=== PATIENT | male | born 1960 | race African-American/Black ===

== ENCOUNTER 2017-07-02 08:22 | Inpatient (IN) | payer OTHER ==
[2017-07-02 10:45] VITALS: BMI 31.3
--- NOTE | 2017-07-02 12:39 | HP ---
CIWA Score - CIWA Score Nausea/Vomitin-Int. Nausea w/Dry Heave Muscle Tremors: 4-Moderate,w/Arms Extend Anxiety: 4-Mod. Anxious/Guarded Agitation: 4-Moderately Restless Paroxysmal Sweats: No Perspiration Orientation: 0-Oriented Tacttile Disturbances: 3-Moderate Itch/Numb/Burn Auditory Disturbances: 0-None Visual Disturbances: 0-None Headache: 0-None Present CIWA-Ar Total Score: 19 Admission ROS BHS - HPI Chief Complaint: WITHDRAWAL SX FROM ALCOHOL Allergies/Adverse Reactions: Allergies Allergy/AdvReac Type Severity Reaction Status Date / Time No Known Allergies Allergy Verified 07/02/17 11:08 History of Present Illness: 56 Y/O AA/MALE WITH A HX OF ALCOHOL DEPENDENCE SEEKING DETOX [place] Exam Limitations: No Limitations - Ebola screening Have you traveled outside of the country in the last 21 days: No Have you had contact with anyone from an Ebola affected area: No Have you been sick,other than usual withdrawal symptoms: No - Review of Systems Constitutional: Chills, Night Sweats, Changes in sleep Respiratory: reports: No Symptoms reported Cardiac: reports: Lightheadedness GI: reports: Nausea, Vomiting : reports: No Symptoms Reported Musculoskeletal: reports: No Symptoms Reported Integumentary: reports: No Symptoms Reported Neuro: reports: Headache, Tremors, Unsteady Gait, Dizziness Endocrine: reports: No Symptoms Reported Hematology: reports: No Symptoms Reported Psychiatric: reports: Orientated x3, Anxious, Depressed Other Systems: Reviewed and Negative Patient History - Patient Medical History Hx Anemia: No Hx Asthma: No Hx Chronic Obstructive Pulmonary Disease (COPD): No Hx Cancer: No Hx Cardiac Disorders: No Hx Congestive Heart Failure: No Hx Hypertension: No Hx Hypercholesterolemia: No Hx Pacemaker: No HX Cerebrovascular Accident: No Hx Seizures: No Hx Dementia: No Hx Diabetes: No Hx Gastrointestinal Disorders: No Hx Liver Disease: No Hx Genitourinary Disorders: No Hx Sexually Transmitted Disorders: No Hx Renal Disease (ESRD): No Hx Thyroid Disease: Yes (HX HYPERTHYROIDISM- NO MED) Hx Human Immunodeficiency Virus (HIV): No (NEGATIVE HX) Hx Hepatitis C: Yes (1 year) Hx Depression: Yes (INSOMNIA-SEROQUEL,TRAZODONE & VISTARIL) Hx Suicide Attempt: No (DENIES PREVIOUS AND CURRENT S/H/I TODAY) Hx Bipolar Disorder: No Hx Schizophrenia: No (DENIES) - Patient Surgical History Past Surgical History: Yes Hx Neurologic Surgery: No Hx Cataract Extraction: No Hx Cardiac Surgery: No Hx Lung Surgery: No Hx Breast Surgery: No Hx Breast Biopsy: No Hx Abdominal Surgery: No Hx Appendectomy: No Hx Cholecystectomy: No Hx Genitourinary Surgery: No Hx Orthopedic Surgery: Yes (RT.HAND 4TH FINGER) Anesthesia Reaction: No - PPD History Previous Implant?: Yes Documented Results: Negative w/proof Implanted On Prior [facility] Admission?: Yes Date: 03/15/16 Results: 0 mm PPD to be Administered?: Yes - Reproductive History Patient is a Female of Child Bearing Age (11 -55 yrs old): No (MALE) - Smoking Cessation Smoking history: Current every day smoker Have you smoked in the past 12 months: Yes Aproximately how many cigarettes per day: 5 Cigars Per Day: 0 Hx Chewing Tobacco Use: No Initiated information on smoking cessation: Yes 'Breaking Loose' booklet given: 07/02/17 - Substance & Tx. History Hx Alcohol Use: Yes (RUM/BEER) Hx Substance Use: Yes (COCAINE/MARIJUANA) Substance Use Type: Alcohol, Cocaine, Marijuana Hx Substance Use Treatment: Yes - Substances Abused Alcohol Route: Oral Frequency: Daily Amount used: rum(2 pints)/beer(5-16oz cans) Age of first use: 15 Date of Last Use: 07/01/17 Cocaine Route: Smoking Frequency: Daily Amount used: $50 Age of first use: 23 Date of Last Use: 07/01/17 Marijuana/Hashish Route: Smoking Frequency: Daily Amount used: $20 Age of first use: 15 Date of Last Use: 07/01/17 Family Disease History - Family Disease History Family Disease History: Other: Father (alcohol), Mother (alcohol), Brother ( alcohol), Sister (alcohol) Admission Physical Exam BHS - Vital Signs Vital Signs: Vital Signs - 24 hr 07/02/17 10:43 Temperature 96.8 F L Pulse Rate 104 H Respiratory 20 Rate Blood Pressure 150/73 - Physical General Appearance: Yes: Moderate Distress, Alcohol on Breath, Intoxicated, Anxious HEENTM: Yes: EOMI, Normocephalic, BRADEN, Pharynx Normal Respiratory: Yes: Chest Non-Tender, Lungs Clear, Normal Breath Sounds, No Respiratory Distress Neck: Yes: No masses,lesions,Nodules, Supple, Trachea in good position Breast: Yes: Breast Exam Deferred Cardiology: Yes: Regular Rhythm, Regular Rate, S1, S2 Abdominal: Yes: Normal Bowel Sounds, Non Tender, Flat, Soft Genitourinary: Yes: Other (N/C) Back: Yes: Within Normal Limits Musculoskeletal: Yes: full range of Motion, Gait Steady Extremities: Yes: Normal Range of Motion, Non-Tender Neurological: Yes: complaints coordinator II-XII NML intact, Fully Oriented, Alert, Motor Strength 5/5 Integumentary: Yes: Dry, Warm Lymphatic: Yes: Within Normal Limits - Diagnostic (1) Hepatitis C carrier Current Visit: Yes Status: Chronic (2) Hyperthyroidism Current Visit: Yes Status: Chronic Comment: PT HX-NO MEDS (3) Nicotine dependence Current Visit: Yes Status: Acute Qualifiers: Nicotine product type: cigarettes Substance use status: in withdrawal Qualified Code(s): F17.213 - Nicotine dependence, cigarettes, with withdrawal (4) Alcohol dependence with uncomplicated withdrawal Current Visit: Yes Status: Acute (5) Cocaine dependence with withdrawal Current Visit: Yes Status: Acute (6) Insomnia secondary to depression with anxiety Current Visit: Yes Status: Chronic Cleared for Admission [facility] - Detox or Rehab [facility] Level of Care: Medically Managed Detox Regimen/Protocol: Librium [facility] Breath Alcohol Content Breath Alcohol Content: 0.035 Urine Drug Screen - Results Drug Screen Negative: No Urine Drug Screen Results: ELIZABETH-Cocaine
[2017-07-02] MEDS ORDERED: IBUPROFEN 400 MG TABLET (FP) PO PRN (13:04)
[2017-07-02] MEDS ORDERED: MAGNESIUM CITRATE 300 ML BOTTLE PO PRN (13:04)
[2017-07-02] MEDS ORDERED: P-EPHED 60MG/TRIPROLIDI 2.5MG TABLET PO PRN (13:04)
[2017-07-02] MEDS ORDERED: guaiFENesin/D-METHORPHAN HB 10 ML UNIT-DOSE CUPS PO PRN (13:04)
[2017-07-02] MEDS ORDERED: chlordiazePOXIDE HCL 25 MG CAPSULE PO PRN (13:04)
[2017-07-02] MEDS ORDERED: LOPERAMIDE HCL 2 MG CAPSULE PO PRN (13:04)
[2017-07-02] MEDS ORDERED: MAGNESIUM HYDROX 2400MG/30ML ORAL SUSPENSION 30 ML CUP PO PRN (13:04)
[2017-07-02] MEDS ORDERED: ACETAMINOPHEN 325 MG TABLET (FP) PO PRN (13:04)
[2017-07-02] MEDS ORDERED: NICOTINE POLACRILEX 2 MG GUM BC PRN (13:04)
[2017-07-02] MEDS ORDERED: MAG HYDROX/AL HYDROX/SIMETH 30 ML UNIT-DOSE CUP PO PRN (13:04)
[2017-07-02] MEDS ORDERED: MENTHOL/PHENOL 1 EACH UD MM PRN (13:04)
[2017-07-02] MEDS ORDERED: chlordiazePOXIDE HCL 25 MG CAPSULE PO ONE (14:00)
[2017-07-02] MEDS: NICOTINE 14 MG/24 HOURS TOPICAL PATCH TD SCH (15:23)
[2017-07-02] MEDS: chlordiazePOXIDE HCL 25 MG CAPSULE PO SCH ×2 (17:30→22:09)
[2017-07-02] MEDS ORDERED: diphenhydrAMINE HCL 50 MG CAPSULE PO PRN (17:34)
[2017-07-02] MEDS ORDERED: ZOLPIDEM TARTRATE 10 MG TABLET (PARK CARE ONLY) PO PRN (17:35)
[2017-07-02 18:10] LABS: HEMATOCRIT 40.8 % (35.4-49); HEMOGLOBIN 13.5 GM/dL (11.7-16.9); MCH 30.1 pg (25.7-33.7); MCHC 33.2 g/dl (32.0-35.9); MEAN CELL VOLUME 90.5 fl (80-96); MEAN PLT VOLUME 8.1 fl (7.5-11.1); PLATELET COUNT 320 K/MM3 (134-434); RDW 14.3 % (11.9-15.9); WHITE BLOOD COUNT 9.4 K/mm3 (4.0-10.0)
[2017-07-02 18:11] LABS: URINE APPEARANCE CLEAR; URINE BILIRUBIN NEGATIVE (NEGATIVE); URINE BLOOD NEGATIVE (NEGATIVE); URINE COLOR YELLOW; URINE GLUCOSE (UA) NEGATIVE (NEGATIVE); URINE KETONE 1+ (NEGATIVE); URINE LEUK ESTERASE NEGATIVE (NEGATIVE); URINE NITRITE NEGATIVE (NEGATIVE); URINE PROTEIN NEGATIVE (NEGATIVE); URINE UROBILINOGEN 4.0 E.U/dl mg/dL (0.2-1.0)
[2017-07-02 18:35] LABS: ALBUMIN 4.1 g/dl (3.4-5.0); BLOOD UREA NITROGEN 17 mg/dL (7-18); CHLORIDE 106 mmol/L (98-107); CREATININE 0.9 mg/dL (0.7-1.3); GLUCOSE,RANDOM 117 mg/dL (74-106); POTASSIUM 3.8 mmol/L (3.5-5.1); SGOT/AST 107 U/L (15-37); SODIUM 140 mmol/L (136-145)
[2017-07-02 18:51] LABS: ALK PHOS 103 U/L (45-117); ANION GAP 10 (8-16); BILIRUBIN,TOTAL 0.7 mg/dL (0.2-1.0); CALCIUM 8.8 mg/dL (8.5-10.1); CO2 24 mmol/L (21-32); SGPT/ALT 152 U/L (12-78); TOT PROT 8.5 g/dl (6.4-8.2)
[2017-07-02] MEDS ORDERED: THIAMINE HCL 100 MG TABLET (FP) PO SCH (22:00)
[2017-07-03] MEDS: chlordiazePOXIDE HCL 25 MG CAPSULE PO SCH ×2 (05:06→10:05)
--- NOTE | 2017-07-03 09:22 | EKG ---
Test Reason : Blood Pressure : / mmHG Vent. Rate : 102 BPM Atrial Rate : 102 BPM P-R Int : 136 ms QRS Dur : 086 ms QT Int : 364 ms P-R-T Axes : 032 011 015 degrees QTc Int : 474 ms SINUS TACHYCARDIA OTHERWISE NORMAL ECG NO PREVIOUS ECGS AVAILABLE Confirmed by ANABELL ANTOINE MD ([id number]) on 07/03/2017 9:22:00 AM Referred By: Confirmed By:ANABELL ANTOINE MD
[2017-07-03] MEDS ORDERED: PRENATAL VITAMINS W/ FOLIC ACID TABLET (FP) PO SCH (10:00)
[2017-07-03] MEDS: NICOTINE 14 MG/24 HOURS TOPICAL PATCH TD SCH (10:05)
--- NOTE | 2017-07-03 10:31 | CONSULT ---
[facility] Psychiatric Consult - Data Date of interview: 07/03/17 Admission source: [facility] Identifying data: Readmission to [facility] for this 56 y/o male seeking detox treatment on for alcohol,cocaine and cannabis dependence.PAtient is single without children,homeless,unemployed and supported on SSD benefits. Substance Abuse History: Confirmed by patient in this session.Details in current [facility] report. Smoking history: Current every day smoker. Have you smoked in the past 12 months: Yes. Aproximately how many cigarettes per day: 5. Cigars Per Day: 0. Hx Chewing Tobacco Use: No. Initiated information on smoking cessation: Yes. 'Breaking Loose' booklet given: 07/02/17. - Substance & Tx. History. Hx Alcohol Use: Yes (RUM/BEER). Hx Substance Use: Yes (COCAINE/ MARIJUANA). Substance Use Type: Alcohol, Cocaine, Marijuana. Hx Substance Use Treatment: Yes. - Substances Abused. Alcohol. Route: Oral. Frequency: Daily. Amount used: rum(2 pints)/beer(5-16oz cans). Age of first use: 15. Date of Last Use: 07/01/17. Cocaine. Route: Smoking. Frequency: Daily. Amount used: $50. Age of first use: 23. Date of Last Use: 07/01/17. Marijuana/Hashish. Route: Smoking. Frequency: Daily. Amount used: $20. Age of first use: 15. Date of Last Use: 07/01/17 Medical History: Hepatitis C,hyperthyroidism and a history of orthosurgery ( fourth finger of right hand). Psychiatric History: Onset of psychiatric disturbances (age 23).Patient presents with a history of three psychiatric hospitalizations ([facility] at age 23 + [facility] in 2015 + [facility] six months ago).Diagnosed with MDD.Currently maintained on a regimen of seroquel 300 mg/hs + trazodone 100 mg/hs.Reportedly taken two days prior to this [facility] visit.Mr Humphrey declares that he gets psychiatric OPD care at the [facility] clinic.Denies history of suicide attempts. Physical/Sexual Abuse/Trauma History: Patient denies history of abuse.Served in the [employer] from 1975 to 1979.No reported combat experience. Additional Comment: Urine Drug Screen Results: ELIZABETH-Cocaine.Noted. Mental Status Exam - Mental Status Exam Alert and Oriented to: Time, Place, Person Cognitive Function: Good Patient Appearance: Well Groomed Mood: Nervous, Withdrawn, Anxious Affect: Mood Congruent, Constricted Patient Behavior: Appropriate, Cooperative Speech Pattern: Clear, Appropriate Voice Loudness: Normal Thought Process: Intact, Goal Oriented Thought Disorder: Not Present Hallucinations: Denies Suicidal Ideation: Denies Homicidal Ideation: Denies Insight/Judgement: Poor Sleep: Poorly, Difficulty falling asleep Appetite: Good Muscle strength/Tone: Normal Gait/Station: Normal Psychiatric Findings - Problem List ([place] 1, 2,3) (1) Alcohol dependence with uncomplicated withdrawal Current Visit: Yes Status: Acute (2) Cocaine dependence with withdrawal Current Visit: Yes Status: Acute (3) Nicotine dependence Current Visit: Yes Status: Acute Qualifiers: Nicotine product type: cigarettes Substance use status: in withdrawal Qualified Code(s): F17.213 - Nicotine dependence, cigarettes, with withdrawal (4) Substance induced mood disorder Current Visit: Yes Status: Acute (5) Schizoaffective disorder Current Visit: Yes Status: Chronic Comment: As per records.On medications.Patient is followed at the [facility] in [facility]. (6) Insomnia Current Visit: Yes Status: Acute - Initial Treatment Plan Initial Treatment Plan: Psychoeducation and support.Records revisited.Detoxification in progress.Sleep hygiene.Medications : seroquel 200 mg po hs + trazodone 100 mg po hs.Ordered.Side effects/benefits discussed with the patient.Mr Humphrey is made aware of risk of priapism,abnormal involuntary movements,cardiovascular adverse events,metabolic syndrome in addition to the benefits of adherence to medications / maintenance of sobriety.Patient is found to be receptive to teaching.Consent (verbal) given for this careplan.Observation.
--- NOTE | 2017-07-03 11:19 | PN ---
[facility] CIWA - CIWA Score Nausea/Vomitin-No Nausea/No Vomiting Muscle Tremors: 4-Moderate,w/Arms Extend Anxiety: 4-Mod. Anxious/Guarded Agitation: 4-Moderately Restless Paroxysmal Sweats: 1-Minimal Palms Moist Orientation: 0-Oriented Tacttile Disturbances: 3-Moderate Itch/Numb/Burn Auditory Disturbances: 0-None Visual Disturbances: 0-None Headache: 0-None Present CIWA-Ar Total Score: 16 BHS Progress Note (SOAP) Subjective: ANXIETY,SWEATS,TREMORS, Objective: 07/03/17 11:17 Vital Signs Temperature 97.2 F L 07/03/17 09:30 Pulse Rate 89 07/03/17 09:30 Respiratory Rate 19 07/03/17 09:30 Blood Pressure 145/93 07/03/17 09:30 O2 Sat by Pulse Oximetry (%) Laboratory Last Values WBC 9.4 K/mm3 (4.0-10.0) 07/02/17 13:30 RBC 4.50 M/mm3 (4.00-5.60) 07/02/17 13:30 Hgb 13.5 GM/dL (11.7-16.9) 07/02/17 13:30 Hct 40.8 % (35.4-49) 07/02/17 13:30 MCV 90.5 fl (80-96) 07/02/17 13:30 MCH 30.1 pg (25.7-33.7) 07/02/17 13:30 MCHC 33.2 g/dl (32.0-35.9) 07/02/17 13:30 RDW 14.3 % (11.9-15.9) 07/02/17 13:30 Plt Count 320 K/MM3 (134-434) D 07/02/17 13:30 MPV 8.1 fl (7.5-11.1) 07/02/17 13:30 Sodium 140 mmol/L (136-145) 07/02/17 13:30 Potassium 3.8 mmol/L (3.5-5.1) 07/02/17 13:30 Chloride 106 mmol/L (98-107) 07/02/17 13:30 Carbon Dioxide 24 mmol/L (21-32) 07/02/17 13:30 Anion Gap 10 (8-16) 07/02/17 13:30 BUN 17 mg/dL (7-18) D 07/02/17 13:30 Creatinine 0.9 mg/dL (0.7-1.3) 07/02/17 13:30 Creat Clearance w eGFR > 60 (>60) 07/02/17 13:30 Random Glucose 117 mg/dL (74-106) H D 07/02/17 13:30 Calcium 8.8 mg/dL (8.5-10.1) 07/02/17 13:30 Total Bilirubin 0.7 mg/dL (0.2-1.0) D 07/02/17 13:30 AST 107 U/L (15-37) H D 07/02/17 13:30 ALT 152 U/L (12-78) H D 07/02/17 13:30 Alkaline Phosphatase 103 U/L (45-117) D 07/02/17 13:30 Total Protein 8.5 g/dl (6.4-8.2) H D 07/02/17 13:30 Albumin 4.1 g/dl (3.4-5.0) D 07/02/17 13:30 Urine Color Yellow 07/02/17 14:40 Urine Appearance Clear 07/02/17 14:40 Urine pH 5.0 (5.0-8.0) 07/02/17 14:40 Ur Specific [place] 1.023 (1.001-1.035) 07/02/17 14:40 Urine Protein Negative (NEGATIVE) 07/02/17 14:40 Urine Glucose (UA) Negative (NEGATIVE) 07/02/17 14:40 Urine Ketones 1+ (NEGATIVE) H 07/02/17 14:40 Urine Blood Negative (NEGATIVE) 07/02/17 14:40 Urine Nitrite Negative (NEGATIVE) 07/02/17 14:40 Urine Bilirubin Negative (NEGATIVE) 07/02/17 14:40 Urine Urobilinogen 4.0 e.u/dl mg/dL (0.2-1.0) 07/02/17 14:40 Ur Leukocyte Esterase Negative (NEGATIVE) 07/02/17 14:40 Assessment: 07/03/17 11:17 WITHDRAWAL SX Plan: CONTINUE DETOX
[2017-07-03 13:08] VITALS: BP 147/89; PULSE 90; TEMP 98.3
--- NOTE | 2017-07-03 14:27 | DS ---
[facility] Detox Discharge Summary Admission Date: 07/02/17 Discharge Date: 07/03/17 - History Present History: Alcohol Dependence, Cocaine Dependence Additional Comments: PT DECLINED TO COMPLETE DETOX STATING "I JUST REMEMBERED I HAVE SOME IMPORTANT STUFF TO DO. I COULDN'T THINK YESTERDAY". ALERT O X 3. NAD. NO TREMORS. STEADY GAIT. Pertinent Past History: SEE DX BELOW - Physical Exam Results Vital Signs: Vital Signs Temperature 98.3 F 07/03/17 13:07 Pulse Rate 90 07/03/17 13:07 Respiratory Rate 18 07/03/17 13:07 Blood Pressure 147/89 07/03/17 13:07 O2 Sat by Pulse Oximetry (%) Pertinent Admission Physical Exam Findings: WITHDRAWAL SX Laboratory Last Values WBC 9.4 K/mm3 (4.0-10.0) 07/02/17 13:30 RBC 4.50 M/mm3 (4.00-5.60) 07/02/17 13:30 Hgb 13.5 GM/dL (11.7-16.9) 07/02/17 13:30 Hct 40.8 % (35.4-49) 07/02/17 13:30 MCV 90.5 fl (80-96) 07/02/17 13:30 MCH 30.1 pg (25.7-33.7) 07/02/17 13:30 MCHC 33.2 g/dl (32.0-35.9) 07/02/17 13:30 RDW 14.3 % (11.9-15.9) 07/02/17 13:30 Plt Count 320 K/MM3 (134-434) D 07/02/17 13:30 MPV 8.1 fl (7.5-11.1) 07/02/17 13:30 Sodium 140 mmol/L (136-145) 07/02/17 13:30 Potassium 3.8 mmol/L (3.5-5.1) 07/02/17 13:30 Chloride 106 mmol/L (98-107) 07/02/17 13:30 Carbon Dioxide 24 mmol/L (21-32) 07/02/17 13:30 Anion Gap 10 (8-16) 07/02/17 13:30 BUN 17 mg/dL (7-18) D 07/02/17 13:30 Creatinine 0.9 mg/dL (0.7-1.3) 07/02/17 13:30 Creat Clearance w eGFR > 60 (>60) 07/02/17 13:30 Random Glucose 117 mg/dL (74-106) H D 07/02/17 13:30 Calcium 8.8 mg/dL (8.5-10.1) 07/02/17 13:30 Total Bilirubin 0.7 mg/dL (0.2-1.0) D 07/02/17 13:30 AST 107 U/L (15-37) H D 07/02/17 13:30 ALT 152 U/L (12-78) H D 07/02/17 13:30 Alkaline Phosphatase 103 U/L (45-117) D 07/02/17 13:30 Total Protein 8.5 g/dl (6.4-8.2) H D 07/02/17 13:30 Albumin 4.1 g/dl (3.4-5.0) D 07/02/17 13:30 Urine Color Yellow 07/02/17 14:40 Urine Appearance Clear 07/02/17 14:40 Urine pH 5.0 (5.0-8.0) 07/02/17 14:40 Ur Specific [place] 1.023 (1.001-1.035) 07/02/17 14:40 Urine Protein Negative (NEGATIVE) 07/02/17 14:40 Urine Glucose (UA) Negative (NEGATIVE) 07/02/17 14:40 Urine Ketones 1+ (NEGATIVE) H 07/02/17 14:40 Urine Blood Negative (NEGATIVE) 07/02/17 14:40 Urine Nitrite Negative (NEGATIVE) 07/02/17 14:40 Urine Bilirubin Negative (NEGATIVE) 07/02/17 14:40 Urine Urobilinogen 4.0 e.u/dl mg/dL (0.2-1.0) 07/02/17 14:40 Ur Leukocyte Esterase Negative (NEGATIVE) 07/02/17 14:40 RPR Titer Nonreactive (NONREACTIVE) 07/02/17 13:30 - Treatment Hospital Course: Discharged Condition Good, Rehab Referral Accepted Patient has Accepted a Rehab Referral to: REFERRED TO [facility] - Medication Discharge Medications: Ambulatory Orders Quetiapine Fumarate [Seroquel -] 200 mg PO HS #30 tablet 04/10/16 traZODone HCL [Desyrel -] 150 mg PO HS #30 tablet 04/10/16 hydrOXYzine PAMOATE [Vistaril -] 100 mg PO HS 07/02/17 - Diagnosis (1) Hepatitis C carrier Current Visit: Yes Status: Chronic (2) Hyperthyroidism Current Visit: Yes Status: Chronic (3) Nicotine dependence Current Visit: Yes Status: Acute Qualifiers: Nicotine product type: cigarettes Substance use status: in withdrawal Qualified Code(s): F17.213 - Nicotine dependence, cigarettes, with withdrawal (4) Alcohol dependence with uncomplicated withdrawal Current Visit: Yes Status: Acute (5) Cocaine dependence with withdrawal Current Visit: Yes Status: Acute (6) Insomnia secondary to depression with anxiety Current Visit: Yes Status: Chronic - AMA Did Patient Leave Against Medical Advice: Yes (AMA)
[2017-07-03] MEDS ORDERED: chlordiazePOXIDE HCL 25 MG CAPSULE PO SCH (17:00)
[2017-07-03] MEDS ORDERED: hydrOXYzine PAMOATE 50 MG CAPSULE (FP) PO SCH (22:00)
[2017-07-03] MEDS ORDERED: traZODone HCL 100 MG TABLET (FP) PO SCH (22:00)
[2017-07-03] MEDS ORDERED: QUEtiapine FUMARATE 200 MG TABLET PO SCH (22:00)
[2017-07-04] MEDS ORDERED: chlordiazePOXIDE 5 MG CAPSULE PO SCH (17:00)
[2017-07-05] MEDS ORDERED: chlordiazePOXIDE HCL 10 MG CAPSULE PO SCH (17:00)
== END 2017-07-03 14:45 | disposition left against medical advice (07) | DRG 894 ==
LOC: YASAS 08:22 → Y3N 13:23
PROVIDERS: ADMIT Internal Medicine; ATTEND Internal Medicine
PROC: HZ2ZZZZ Detoxification Services for Substance Abuse Treatment (ICD-10-PCS; principal; 2017-07-02)
DX: F19.230 Other psychoactive substance dependence with withdrawal, uncomplicated (principal); F14.20 Cocaine dependence, uncomplicated; F10.230 Alcohol dependence with withdrawal, uncomplicated; F17.213 Nicotine dependence, cigarettes, with withdrawal; F51.05 Insomnia due to other mental disorder; F25.9 Schizoaffective disorder, unspecified; E05.90 Thyrotoxicosis, unspecified without thyrotoxic crisis or storm; B18.2 Chronic viral hepatitis C
CPT/HCPCS: 36415; 80053; 81003; 85027; 86593; 93005; 93010

== ENCOUNTER 2018-02-16 08:58 | Inpatient (IN) | payer MEDICARE, OTHER ==
[2018-02-16 09:14] VITALS: BMI 32.5
--- NOTE | 2018-02-16 09:35 | HP ---
CIWA Score - CIWA Score Nausea/Vomitin Muscle Tremors: 3 Anxiety: 2 Agitation: 2 Paroxysmal Sweats: 1-Minimal Palms Moist Orientation: 0-Oriented Tacttile Disturbances: 1-Very Mild Itch/Numbness Auditory Disturbances: 1-Very Mild Visual Disturbances: 1-Very Mild Sensitivity Headache: 2-Mild CIWA-Ar Total Score: 15 Admission ROS BHS - HPI Chief Complaint: i need help to stop drinking alcohol and cocaine Allergies/Adverse Reactions: Allergies Allergy/AdvReac Type Severity Reaction Status Date / Time No Known Allergies Allergy Verified 02/16/18 09:29 History of Present Illness: this 57 years old male with alcohol and cocaine dependence,seeking detox, withdrawal symptom,last detox 07/02/17 to 07/03/17 not completed syncope alcohol related hepatitiis c hyperthyriodism ,no medication history of depression,insomnia - Ebola screening Have you traveled outside of the country in the last 21 days: No Have you had contact with anyone from an Ebola affected area: No Have you been sick,other than usual withdrawal symptoms: No Do you have a fever: No - Review of Systems Constitutional: Malaise, Night Sweats, Changes in sleep EENT: reports: Nose Congestion Respiratory: reports: No Symptoms reported Cardiac: reports: Palpitations GI: reports: Nausea, Indigestion, Abdominal cramping : reports: No Symptoms Reported Musculoskeletal: reports: Muscle Pain Integumentary: reports: Dryness Neuro: reports: Headache, Tremors Endocrine: reports: No Symptoms Reported Hematology: reports: No Symptoms Reported Psychiatric: reports: No Sypmtoms Reported, Judgement Intact, Mood/Affect Appropiate, Orientated x3 (insomnia), Depressed Patient History - Patient Medical History Hx Anemia: No Hx Asthma: No Hx Chronic Obstructive Pulmonary Disease (COPD): No Hx Cancer: No Hx Cardiac Disorders: No Hx Congestive Heart Failure: No Hx Hypertension: No Hx Hypercholesterolemia: No Hx Pacemaker: No HX Cerebrovascular Accident: No Hx Seizures: No Hx Dementia: No Hx Diabetes: No Hx Gastrointestinal Disorders: No Hx Liver Disease: No Hx Genitourinary Disorders: No Hx Sexually Transmitted Disorders: No Hx Renal Disease (ESRD): No Hx Thyroid Disease: Yes (HX HYPERTHYROIDISM- NO MED) Hx Human Immunodeficiency Virus (HIV): No (NEGATIVE HX in 09/02) Hx Hepatitis C: Yes (1 year) Hx Depression: Yes (INSOMNIA-SEROQUEL,TRAZODONE & VISTARIL) Hx Suicide Attempt: No (DENIES PREVIOUS AND CURRENT S/H/I TODAY) Hx Bipolar Disorder: No Hx Schizophrenia: No (DENIES) Other Medical History: no suicidal,no homicidal - Patient Surgical History Past Surgical History: Yes Hx Neurologic Surgery: No Hx Cataract Extraction: No Hx Cardiac Surgery: No Hx Lung Surgery: No Hx Breast Surgery: No Hx Breast Biopsy: No Hx Abdominal Surgery: No Hx Appendectomy: No Hx Cholecystectomy: No Hx Genitourinary Surgery: No Hx Section: No Hx Orthopedic Surgery: Yes (RT.HAND 4TH FINGER deformity of right ring figer) Anesthesia Reaction: No - PPD History Previous Implant?: Yes Date: 03/15/16 Results: 0 mm PPD to be Administered?: Yes - Smoking Cessation Smoking history: Current every day smoker Have you smoked in the past 12 months: Yes Aproximately how many cigarettes per day: 5 Cigars Per Day: 0 Hx Chewing Tobacco Use: No Initiated information on smoking cessation: Yes 'Breaking Loose' booklet given: 02/16/18 - Substance & Tx. History Hx Alcohol Use: Yes Hx Substance Use: Yes Substance Use Type: Alcohol, Cocaine Hx Substance Use Treatment: Yes ([facility] 07/02/17 to 07/03/17 not completed) - Substances Abused Crack Route: Smoking Frequency: Daily Amount used: $30 Age of first use: 23 Date of Last Use: 02/15/18 Alcohol-vodka/beer Route: Oral Frequency: Daily Amount used: 2 pts./1-6 pk. Age of first use: 15 Date of Last Use: 02/15/18 Family Disease History - Family Disease History Family Disease History: Other: Father (alcohol), Mother (alcohol), Brother ( alcohol), Sister (alcohol) Admission Physical Exam BHS - Vital Signs Vital Signs: Vital Signs - 24 hr 02/16/18 09:08 Temperature 97.7 F Pulse Rate 88 Respiratory 18 Rate Blood Pressure 131/82 - Physical General Appearance: Yes: Moderate Distress, Tremorous, Irritable, Anxious HEENTM: Yes: Normal ENT Inspection, BRADEN, Pharynx Normal Respiratory: Yes: Lungs Clear, Normal Breath Sounds, No Respiratory Distress Neck: Yes: Within Normal Limits, Supple, Trachea in good position Breast: Yes: Within Normal Limits Cardiology: Yes: Within Normal Limits, Regular Rhythm, Regular Rate, S1, S2 Abdominal: Yes: Within Normal Limits, Normal Bowel Sounds, Non Tender, Flat, Soft Genitourinary: Yes: Within Normal Limits Back: Yes: Muscle Spasm Musculoskeletal: Yes: Back pain, Muscle Pain Extremities: Yes: Tremors, Other (flexion deprmity of right ring finger scar in ring ring finger volar aspect) Neurological: Yes: 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 II-XII NML intact, Fully Oriented, Alert, Motor Strength 5/5 Integumentary: Yes: Dry, Other (flexion deformity of right ring figer) Lymphatic: Yes: Within Normal Limits - Diagnostic (1) Alcohol dependence with uncomplicated withdrawal Current Visit: Yes Status: Acute (2) Hepatitis C Current Visit: Yes Status: Acute (3) Cocaine dependence with withdrawal Current Visit: Yes Status: Acute (4) Nicotine dependence Current Visit: No Status: Acute Qualifiers: Nicotine product type: cigarettes Substance use status: in withdrawal Qualified Code(s): F17.213 - Nicotine dependence, cigarettes, with withdrawal (5) Hyperthyroidism Current Visit: No Status: Chronic Comment: PT HX-NO MEDS (6) Syncope Current Visit: Yes Status: Acute (7) Hepatitis C Current Visit: Yes Status: Acute (8) Depression Current Visit: Yes Status: Acute (9) Insomnia Current Visit: Yes Status: Acute Cleared for Admission S - Detox or Rehab [facility] Level of Care: Medically Managed Detox Regimen/Protocol: Librium [facility] Breath Alcohol Content Breath Alcohol Content: 0.149 Urine Drug Screen - Results Drug Screen Negative: No Urine Drug Screen Results: ELIZABETH-Cocaine
[2018-02-16] MEDS ORDERED: chlordiazePOXIDE HCL 25 MG CAPSULE PO PRN (09:43)
[2018-02-16] MEDS ORDERED: LOPERAMIDE HCL 2 MG CAPSULE PO PRN (09:43)
[2018-02-16] MEDS ORDERED: IBUPROFEN 400 MG TABLET (FP) PO PRN (09:43)
[2018-02-16] MEDS ORDERED: ACETAMINOPHEN 325 MG TABLET (FP) PO PRN (09:43)
[2018-02-16] MEDS ORDERED: P-EPHED 60MG/TRIPROLIDI 2.5MG TABLET PO PRN (09:43)
[2018-02-16] MEDS ORDERED: MENTHOL/PHENOL 1 EACH UD MM PRN (09:43)
[2018-02-16] MEDS ORDERED: hydrOXYzine PAMOATE 25 MG CAPSULE (FP) PO PRN (09:43)
[2018-02-16] MEDS ORDERED: guaiFENesin/D-METHORPHAN HB 10 ML UNIT-DOSE CUPS PO PRN (09:43)
[2018-02-16] MEDS ORDERED: MAGNESIUM CITRATE 300 ML BOTTLE PO PRN (09:43)
[2018-02-16] MEDS ORDERED: MAGNESIUM HYDROX 2400MG/30ML ORAL SUSPENSION 30 ML CUP PO PRN (09:43)
[2018-02-16] MEDS: PRENATAL VITAMINS W/ FOLIC ACID TABLET (FP) PO SCH (12:21)
[2018-02-16] MEDS: MAG HYDROX/AL HYDROX/SIMETH 30 ML UNIT-DOSE CUP PO PRN (12:25)
--- NOTE | 2018-02-16 16:04 | EKG ---
Test Reason : Blood Pressure : / mmHG Vent. Rate : 085 BPM Atrial Rate : 085 BPM P-R Int : 148 ms QRS Dur : 088 ms QT Int : 376 ms P-R-T Axes : 024 053 028 degrees QTc Int : 447 ms NORMAL SINUS RHYTHM NORMAL ECG WHEN COMPARED WITH ECG OF 02-JUL-2017 15:11, NON-SPECIFIC CHANGE IN ST SEGMENT IN INFERIOR LEADS Confirmed by John Zepeda MD ([id number]) on 02/16/2018 4:04:00 PM Referred By: Confirmed By:John Zepeda MD
[2018-02-16] MEDS: NICOTINE POLACRILEX 2 MG GUM BUC PRN (17:14)
[2018-02-16] MEDS: chlordiazePOXIDE HCL 25 MG CAPSULE PO SCH ×2 (17:21→22:11)
--- NOTE | 2018-02-16 18:23 | CONSULT ---
[facility] Psychiatric Consult - Data Date of interview: 02/16/18 Admission source: [facility] Identifying data: This is one of multiple admissions to [facility] for this 57 y/ o male seeking detox treatment, on for alcohol and cocaine dependence.Patient is single without children,homeless,unemployed and supported on SSI benefits. Substance Abuse History: Confirmed by patient in this interview.Details in current [facility] report : Smoking history: Current every day smoker. Have you smoked in the past 12 months: Yes. Aproximately how many cigarettes per day: 5. Cigars Per Day: 0. Hx Chewing Tobacco Use: No. Initiated information on smoking cessation: Yes. 'Breaking Loose' booklet given: 02/16/18. - Substance & Tx. History. Hx Alcohol Use: Yes. Hx Substance Use: Yes. Substance Use Type : Alcohol, Cocaine. Hx Substance Use [facility]: [facility] not completed) Medical History: Hepatitis C,hyperthyroidism and a history of orthosurgery ( fourth finger of right hand). Psychiatric History: Onset of psychiatric disturbances (age 23).Patient presents with a history of three psychiatric hospitalizations ([facility] at age 23 + [facility] in 2015 + [facility] + [facility]).Diagnosed with MDD.Current maintenance regimen consists of seroquel 300 mg/hs + trazodone 100 mg/hs+ vistaril 100 mg/hs (self-reprt).Mr Humphrey declares that he gets psychiatric OPD care at the [facility] clinic ([address] [place] [address] in [facility]).Patient denies history of suicide attempts. Physical/Sexual Abuse/Trauma History: Patient denies history of abuse.Served in the [employer] from 1975 to 1979.No reported combat experience. Additional Comment: Urine Drug Screen Results: ELIZABETH-Cocaine.Noted. Mental Status Exam - Mental Status Exam Alert and Oriented to: Time, Place, Person Cognitive Function: Good Patient Appearance: Disheveled Mood: Nervous, Withdrawn Affect: Mood Congruent Patient Behavior: Appropriate, Cooperative Speech Pattern: Clear, Appropriate Voice Loudness: Normal Thought Process: Goal Oriented Thought Disorder: Not Present Hallucinations: Denies Suicidal Ideation: Denies Homicidal Ideation: Denies Insight/Judgement: Poor Sleep: Poorly, Difficulty falling asleep Appetite: Good Muscle strength/Tone: Normal Gait/Station: Normal Psychiatric Findings - Problem List ([place] 1, 2,3) (1) Alcohol dependence with uncomplicated withdrawal Current Visit: Yes Status: Acute (2) Cocaine dependence with withdrawal Current Visit: Yes Status: Acute (3) Substance induced mood disorder Current Visit: Yes Status: Acute (4) Schizoaffective disorder Current Visit: Yes Status: Chronic Comment: As per records.On medications.Patient is followed at the [facility] in [facility]. (5) Insomnia Current Visit: Yes Status: Acute - Initial Treatment Plan Initial Treatment Plan: Psychoeducation.Sleep hygiuene.Detoxification in progress.Medications : seroquel 200 mg po hs (reduced) + trazodone 50 mg po hs ( reduced).Side effects/benefits of both drugs are discussed with the patient.Agrees to this careplan.Observation.
[2018-02-16 18:45] LABS: URINE APPEARANCE CLEAR; URINE BILIRUBIN NEGATIVE (<2.0 mg/dL); URINE COLOR STRAW; URINE GLUCOSE (UA) NEGATIVE (NEGATIVE); URINE KETONE NEGATIVE (NEGATIVE); URINE LEUK ESTERASE NEGATIVE (NEGATIVE); URINE NITRITE NEGATIVE (NEGATIVE); URINE PROTEIN NEGATIVE (NEGATIVE); URINE UROBILINOGEN NEGATIVE mg/dL (0.2-1.0)
[2018-02-16] MEDS: THIAMINE HCL 100 MG TABLET (FP) PO SCH (22:11)
[2018-02-16] MEDS: traZODone HCL 50 MG TABLET (FP) PO SCH (22:11)
[2018-02-16] MEDS: QUEtiapine FUMARATE 200 MG TABLET PO SCH (22:11)
[2018-02-16] MEDS: MELATONIN 5 MG TABLETS PO PRN (22:12)
[2018-02-17] MEDS: chlordiazePOXIDE HCL 25 MG CAPSULE PO SCH ×4 (05:35→22:16)
[2018-02-17] MEDS: PRENATAL VITAMINS W/ FOLIC ACID TABLET (FP) PO SCH (10:11)
[2018-02-17] MEDS: NICOTINE POLACRILEX 2 MG GUM BUC PRN ×3 (10:13→22:18)
[2018-02-17 10:29] LABS: HEMATOCRIT 39.4 % (35.4-49); MCH 30.4 pg (25.7-33.7); MEAN CELL VOLUME 92.2 fl (80-96); PLATELET COUNT 234 K/MM3 (134-434); RBC 4.27 M/mm3 (4.00-5.60); RDW 13.3 % (11.9-15.9); WHITE BLOOD COUNT 6.4 K/mm3 (4.0-10.0)
[2018-02-17 10:56] LABS: ALBUMIN 3.1 g/dl (3.4-5.0); ALK PHOS 68 U/L (45-117); ANION GAP 11 MMOL/L (8-16); BILIRUBIN,TOTAL 0.6 mg/dL (0.2-1); BLOOD UREA NITROGEN 12 mg/dL (7-18); CALCIUM 8.7 mg/dL (8.5-10.1); CHLORIDE 102 mmol/L (98-107); CO2 24 mmol/L (21-32); CREATININE 0.8 mg/dL (0.55-1.3); GLUCOSE,RANDOM 117 mg/dL (74-106); SGOT/AST 51 U/L (15-37); SGPT/ALT 91 U/L (13-61); SODIUM 137 mmol/L (136-145); TOT PROT 7.1 g/dl (6.4-8.2)
[2018-02-17] MEDS ORDERED: FLU VACCINE QUAD 60 MCG/0.5 ML (MDV 18-19) IM ONE (12:00)
--- NOTE | 2018-02-17 13:59 | PN ---
S CIWA - CIWA Score Nausea/Vomitin Muscle Tremors: 4-Moderate,w/Arms Extend Anxiety: 4-Mod. Anxious/Guarded Agitation: 4-Moderately Restless Paroxysmal Sweats: 3 Orientation: 0-Oriented Tacttile Disturbances: 0-None Auditory Disturbances: 0-None Visual Disturbances: 0-None Headache: 1-Very Mild CIWA-Ar Total Score: 19 BHS Progress Note (SOAP) Subjective: Upset stomach, tremor, nausea Objective: 02/17/18 13:56 Last Vital Signs Temp Pulse Resp BP Pulse Ox 97.7 F 94 H 18 142/92 02/17/18 13:36 02/17/18 13:36 02/17/18 13:36 02/17/18 13:36 Laboratory Tests 02/16/18 02/16/18 02/17/18 11:30 16:30 06:00 WBC 6.4 RBC 4.27 Hgb 13.0 Hct 39.4 MCV 92.2 MCH 30.4 MCHC 33.0 RDW 13.3 Plt Count 234 D MPV 8.0 Sodium Potassium Chloride Carbon Dioxide Anion Gap BUN Creatinine Creat Clearance w eGFR Random Glucose Calcium Total Bilirubin AST ALT Alkaline Phosphatase Total Protein Albumin Urine Color Straw Urine Appearance Clear Urine pH 6.0 Ur Specific [place] 1.005 Urine Protein Negative Urine Glucose (UA) Negative Urine Ketones Negative Urine Blood Negative Urine Nitrite Negative Urine Bilirubin Negative Urine Urobilinogen Negative Ur Leukocyte Esterase Negative RPR Titer HIV 1&2 Antibody Screen Negative HIV P24 Antigen Negative 02/17/18 02/17/18 06:00 06:00 WBC RBC Hgb Hct MCV MCH MCHC RDW Plt Count MPV Sodium 137 Potassium 4.0 Chloride 102 Carbon Dioxide 24 Anion Gap 11 BUN 12 Creatinine 0.8 Creat Clearance w eGFR > 60 Random Glucose 117 H Calcium 8.7 Total Bilirubin 0.6 AST 51 H ALT 91 H Alkaline Phosphatase 68 Total Protein 7.1 Albumin 3.1 L Urine Color Urine Appearance Urine pH Ur Specific [place] Urine Protein Urine Glucose (UA) Urine Ketones Urine Blood Urine Nitrite Urine Bilirubin Urine Urobilinogen Ur Leukocyte Esterase RPR Titer Nonreactive HIV 1&2 Antibody Screen HIV P24 Antigen Labs reviewed Assessment: 02/17/18 13:59 Withdrawal sxs Plan: Continue detox Encouraged PO water hydration
[2018-02-17] MEDS: cloNIDine HCL 0.1 MG TABLET PO PRN (15:30)
[2018-02-17] MEDS: THIAMINE HCL 100 MG TABLET (FP) PO SCH (22:16)
[2018-02-17] MEDS: QUEtiapine FUMARATE 200 MG TABLET PO SCH (22:16)
[2018-02-17] MEDS: traZODone HCL 50 MG TABLET (FP) PO SCH (22:16)
[2018-02-17] MEDS: MELATONIN 5 MG TABLETS PO PRN (22:18)
[2018-02-18] MEDS: chlordiazePOXIDE HCL 25 MG CAPSULE PO SCH ×2 (05:39→10:28)
[2018-02-18] MEDS: NICOTINE POLACRILEX 2 MG GUM BUC PRN ×5 (05:40→22:20)
[2018-02-18] MEDS: PRENATAL VITAMINS W/ FOLIC ACID TABLET (FP) PO SCH (10:28)
[2018-02-18] MEDS: cloNIDine HCL 0.1 MG TABLET PO PRN (10:28)
--- NOTE | 2018-02-18 12:59 | PN ---
S CIWA - CIWA Score Nausea/Vomitin Muscle Tremors: 3 Anxiety: 3 Agitation: 2 Paroxysmal Sweats: 2 Orientation: 0-Oriented Tacttile Disturbances: 0-None Auditory Disturbances: 0-None Visual Disturbances: 0-None Headache: 1-Very Mild CIWA-Ar Total Score: 13 BHS Progress Note (SOAP) Subjective: Stomach ache, tremor Objective: 02/18/18 12:56 Last Vital Signs Temp Pulse Resp BP Pulse Ox 97.2 F L 78 18 125/80 02/18/18 09:30 02/18/18 09:30 02/18/18 09:30 02/18/18 09:30 Laboratory Tests 02/16/18 02/16/18 02/17/18 11:30 16:30 06:00 WBC 6.4 RBC 4.27 Hgb 13.0 Hct 39.4 MCV 92.2 MCH 30.4 MCHC 33.0 RDW 13.3 Plt Count 234 D MPV 8.0 Sodium Potassium Chloride Carbon Dioxide Anion Gap BUN Creatinine Creat Clearance w eGFR Random Glucose Calcium Total Bilirubin AST ALT Alkaline Phosphatase Total Protein Albumin TSH Resin T3 Uptake Urine Color Straw Urine Appearance Clear Urine pH 6.0 Ur Specific [place] 1.005 Urine Protein Negative Urine Glucose (UA) Negative Urine Ketones Negative Urine Blood Negative Urine Nitrite Negative Urine Bilirubin Negative Urine Urobilinogen Negative Ur Leukocyte Esterase Negative RPR Titer HIV 1&2 Antibody Screen Negative HIV P24 Antigen Negative 02/17/18 02/17/18 02/18/18 06:00 06:00 06:00 WBC RBC Hgb Hct MCV MCH MCHC RDW Plt Count MPV Sodium 137 Potassium 4.0 Chloride 102 Carbon Dioxide 24 Anion Gap 11 BUN 12 Creatinine 0.8 Creat Clearance w eGFR > 60 Random Glucose 117 H Calcium 8.7 Total Bilirubin 0.6 AST 51 H ALT 91 H Alkaline Phosphatase 68 Total Protein 7.1 Albumin 3.1 L TSH 0.60 Resin T3 Uptake 28.8 L Urine Color Urine Appearance Urine pH Ur Specific [place] Urine Protein Urine Glucose (UA) Urine Ketones Urine Blood Urine Nitrite Urine Bilirubin Urine Urobilinogen Ur Leukocyte Esterase RPR Titer Nonreactive HIV 1&2 Antibody Screen HIV P24 Antigen Labs noted Assessment: 02/18/18 12:58 Withdrawal sxs Plan: Continue detox Encouraged PO water hydration
[2018-02-18] MEDS: chlordiazePOXIDE 5 MG CAPSULE PO SCH ×2 (16:47→22:19)
[2018-02-18] MEDS: MAG HYDROX/AL HYDROX/SIMETH 30 ML UNIT-DOSE CUP PO PRN (16:49)
[2018-02-18] MEDS: THIAMINE HCL 100 MG TABLET (FP) PO SCH (22:19)
[2018-02-18] MEDS: traZODone HCL 50 MG TABLET (FP) PO SCH (22:19)
[2018-02-18] MEDS: QUEtiapine FUMARATE 200 MG TABLET PO SCH (22:19)
[2018-02-18] MEDS: MELATONIN 5 MG TABLETS PO PRN (22:20)
[2018-02-19] MEDS: chlordiazePOXIDE 5 MG CAPSULE PO SCH (05:45)
[2018-02-19] MEDS: NICOTINE POLACRILEX 2 MG GUM BUC PRN (05:47)
[2018-02-19 06:36] VITALS: BP 116/76; PULSE 70; TEMP 96.8
[2018-02-19] MEDS ORDERED: chlordiazePOXIDE HCL 10 MG CAPSULE PO ONE (09:30)
--- NOTE | 2018-02-19 13:44 | DS ---
[facility] Detox Discharge Summary Admission Date: 02/16/18 Discharge Date: 02/19/18 - History Present History: Alcohol Dependence, Cocaine Dependence Additional Comments: Patient demands to leave AMA. Cytotechnologist Supervisor met with patient and explained the importance of completing his detox. As per patient, he has very important things to do because he cannot do it tomorrow and must leave right away. Patient agreed to taper librium dose to 10mg and to leave after he received 10mg of librium. Patient decided to refuse the librium stating it's taking too long for pharmacy to verify it and he is not in any withdrawal symptoms and feels fine and wants to leave. Patient left without librium dose. Patient instructed to proceed to ER stat if any withdrawal symptoms and to see his PCP within 3 days. Patient verbalized understanding. Pertinent Past History: Hyperthyroidism Hepatitis C - Physical Exam Results Vital Signs: Vital Signs Temperature 96.8 F L 02/19/18 06:35 Pulse Rate 70 02/19/18 06:35 Respiratory Rate 18 02/19/18 06:35 Blood Pressure 116/76 02/19/18 06:35 O2 Sat by Pulse Oximetry (%) Pertinent Admission Physical Exam Findings: Withdrawal symptoms Laboratory Tests 02/16/18 02/16/18 02/17/18 11:30 16:30 06:00 WBC 6.4 RBC 4.27 Hgb 13.0 Hct 39.4 MCV 92.2 MCH 30.4 MCHC 33.0 RDW 13.3 Plt Count 234 D MPV 8.0 Sodium Potassium Chloride Carbon Dioxide Anion Gap BUN Creatinine Creat Clearance w eGFR Random Glucose Calcium Total Bilirubin AST ALT Alkaline Phosphatase Total Protein Albumin TSH Resin T3 Uptake Urine Color Straw Urine Appearance Clear Urine pH 6.0 Ur Specific [place] 1.005 Urine Protein Negative Urine Glucose (UA) Negative Urine Ketones Negative Urine Blood Negative Urine Nitrite Negative Urine Bilirubin Negative Urine Urobilinogen Negative Ur Leukocyte Esterase Negative RPR Titer HIV 1&2 Antibody Screen Negative HIV P24 Antigen Negative 02/17/18 02/17/18 02/18/18 06:00 06:00 06:00 WBC RBC Hgb Hct MCV MCH MCHC RDW Plt Count MPV Sodium 137 Potassium 4.0 Chloride 102 Carbon Dioxide 24 Anion Gap 11 BUN 12 Creatinine 0.8 Creat Clearance w eGFR > 60 Random Glucose 117 H Calcium 8.7 Total Bilirubin 0.6 AST 51 H ALT 91 H Alkaline Phosphatase 68 Total Protein 7.1 Albumin 3.1 L TSH 0.60 Resin T3 Uptake 28.8 L Urine Color Urine Appearance Urine pH Ur Specific [place] Urine Protein Urine Glucose (UA) Urine Ketones Urine Blood Urine Nitrite Urine Bilirubin Urine Urobilinogen Ur Leukocyte Esterase RPR Titer Nonreactive HIV 1&2 Antibody Screen HIV P24 Antigen Labs reviewed - Treatment Hospital Course: Detox Protocol Followed, Detoxed Safely, Responded well, Discharged Condition Good - Medication Discharge Medications: Ambulatory Orders Quetiapine Fumarate [Seroquel -] 200 mg PO HS #30 tab 02/17/18 traZODone HCL [Trazodone HCl] 50 mg PO HS #30 tablet 02/17/18 - Diagnosis (1) Alcohol dependence with uncomplicated withdrawal Status: Acute (2) Cocaine dependence with withdrawal Status: Chronic (3) Depression Status: Chronic (4) Hepatitis C Status: Chronic (5) Insomnia Status: Chronic (6) Substance induced mood disorder Status: Acute (7) Schizoaffective disorder Status: Chronic (8) Nicotine dependence Status: Chronic Qualifiers: Nicotine product type: cigarettes Substance use status: in withdrawal Qualified Code(s): F17.213 - Nicotine dependence, cigarettes, with withdrawal (9) Hyperthyroidism Status: Chronic - AMA Did Patient Leave Against Medical Advice: No (Proceed to ER stat if w/d sxs, f/ u with your PCP within 3 days)
[2018-02-19] MEDS ORDERED: chlordiazePOXIDE HCL 10 MG CAPSULE PO SCH (17:00)
== END 2018-02-19 09:58 | disposition home or self-care (01) | DRG 897 ==
LOC: YASAS 08:58 → Y3N 09:43
PROC: HZ2ZZZZ Detoxification Services for Substance Abuse Treatment (ICD-10-PCS; principal; 2018-02-16)
DX: F10.230 Alcohol dependence with withdrawal, uncomplicated (principal); F14.20 Cocaine dependence, uncomplicated; F17.213 Nicotine dependence, cigarettes, with withdrawal; F32.9 Major depressive disorder, single episode, unspecified; F19.24 Other psychoactive substance dependence with psychoactive substance-induced mood disorder; F25.9 Schizoaffective disorder, unspecified; G47.00 Insomnia, unspecified; B18.2 Chronic viral hepatitis C; E05.90 Thyrotoxicosis, unspecified without thyrotoxic crisis or storm; Z59.0 Homelessness
CPT/HCPCS: 36415; 80053; 81003; 84436; 84443; 84479; 85027; 86593; 87389; 90688; 93005; 93010; G0008; J0735

== ENCOUNTER 2022-10-06 10:26 | Inpatient (IN) | payer OTHER ==
[2022-10-06 10:57] VITALS: BMI 24.7
[2022-10-06] MEDS ORDERED: BENZONATATE 200 MG CAPSULE PO PRN (12:00)
[2022-10-06] MEDS ORDERED: NALOXONE HCL 0.4 MG/ML VIAL IM PRN (12:00)
[2022-10-06] MEDS ORDERED: IBUPROFEN 400 MG TABLET (FP) PO PRN (12:00)
[2022-10-06] MEDS ORDERED: LOPERAMIDE HCL 2 MG CAPSULE PO PRN (12:00)
[2022-10-06] MEDS ORDERED: MAG HYDROX/AL HYDROX/SIMETH 30 ML UNIT-DOSE CUP PO PRN (12:00)
[2022-10-06] MEDS ORDERED: DICYCLOMINE HCL 10 MG CAPSULE PO PRN (12:00)
[2022-10-06] MEDS ORDERED: MAGNESIUM HYDROX 2400MG/30ML ORAL SUSPENSION 30 ML CUP PO PRN (12:00)
[2022-10-06] MEDS ORDERED: BENZOCAINE/MENTHOL (CHLORASEPTIC ) LOZENGE MM PRN (12:00)
[2022-10-06] MEDS ORDERED: ONDANSETRON *ODT* 4 MG TABLET SL PRN (12:00)
[2022-10-06] MEDS ORDERED: LORazepam 1 MG TABLET PO PRN (12:00)
[2022-10-06] MEDS ORDERED: guaiFENesin 600 MG TABLET.ER (FP) PO PRN (12:00)
[2022-10-06] MEDS ORDERED: BISMUTH SUBSALICYLATE 262 MG/15 ML BTL PO PRN (12:00)
[2022-10-06] MEDS ORDERED: NICOTINE 10 MG CARTRIDGE (INHALER) IH PRN (12:00)
[2022-10-06] MEDS ORDERED: METHOCARBAMOL 500 MG TABLET PO PRN (12:00)
[2022-10-06] MEDS ORDERED: IBUPROFEN 600 MG TABLET (FP) PO PRN (12:00)
[2022-10-06] MEDS ORDERED: hydrOXYzine PAMOATE 25 MG CAPSULE (FP) PO PRN (12:00)
[2022-10-06] MEDS ORDERED: POLYETHYLENE GLYCOL (HEALTHYLAX) 3350 17 GM PACKET PO PRN (12:00)
[2022-10-06] MEDS ORDERED: NALOXONE HCL (KLOXXADO) 8 MG SPRAY NS PRN (12:00)
[2022-10-06] MEDS ORDERED: ACETAMINOPHEN 325 MG TABLET (FP) PO PRN (12:00)
[2022-10-06] MEDS: PRENATAL VITAMINS W/ FOLIC ACID TABLET (FP) PO SCH (13:03)
[2022-10-06] MEDS: NICOTINE 14 MG/24 HOURS TOPICAL PATCH TD SCH (13:04)
[2022-10-06] MEDS: LORazepam 2 MG TABLET PO SCH ×2 (17:23→22:21)
[2022-10-06] MEDS ORDERED: QUEtiapine FUMARATE 400 MG TABLET PO SCH (22:00)
[2022-10-06] MEDS ORDERED: THIAMINE HCL 100 MG TABLET (FP) PO SCH (22:00)
[2022-10-06] MEDS ORDERED: MELATONIN 5 MG TABLETS PO SCH (22:00)
[2022-10-07] MEDS: LORazepam 2 MG TABLET PO SCH ×2 (05:47→10:52)
[2022-10-07 09:26] VITALS: BP 113/71; PULSE 80; RESP 18; TEMP 98.4
[2022-10-07] MEDS: NICOTINE 14 MG/24 HOURS TOPICAL PATCH TD SCH (10:49)
[2022-10-07] MEDS: PRENATAL VITAMINS W/ FOLIC ACID TABLET (FP) PO SCH (10:49)
[2022-10-07 15:44] LABS: HEMATOCRIT 34.6 % (35.4-49); HEMOGLOBIN 11.8 GM/dL (11.7-16.9); MCH 31.1 pg (25.7-33.7); MEAN CELL VOLUME 91.4 fl (80-96); MEAN PLT VOLUME 7.8 fl (7.5-11.1); PLATELET COUNT 316 10^3/uL (134-434); RBC 3.79 M/mm3 (4.00-5.60); RDW 14.5 % (11.9-15.9); WHITE BLOOD COUNT 8.7 K/mm3 (4.0-10.0)
[2022-10-07 15:55] LABS: POTASSIUM 4.1 mmol/L (3.5-5.1)
[2022-10-07 16:01] LABS: ALBUMIN 2.6 g/dl (3.4-5.0); BLOOD UREA NITROGEN 13.3 mg/dL (7-18); CALCIUM 8.6 mg/dL (8.5-10.1)
[2022-10-07 16:03] LABS: CREATININE 0.7 mg/dL (0.55-1.3)
[2022-10-07 16:04] LABS: BILIRUBIN,TOTAL 0.7 mg/dL (0.2-1)
[2022-10-07 16:06] LABS: TOT PROT 5.8 g/dl (6.4-8.2)
[2022-10-08] MEDS ORDERED: LORazepam 1 MG TABLET PO SCH (05:00)
[2022-10-09] MEDS ORDERED: LORazepam 0.5 MG TABLET PO PRN
[2022-10-09] MEDS ORDERED: LORazepam 0.5 MG TABLET PO SCH (05:00)
[2022-10-10] MEDS ORDERED: LORazepam 0.5 MG TABLET PO ONE (05:00)
== END 2022-10-07 14:00 | disposition short-term general hospital (02) | DRG 897 ==
LOC: YASAS 10:26 → Y6N 12:32
PROVIDERS: ADMIT Allergy & Immunology; ATTEND Surgery
PROC: HZ2ZZZZ Detoxification Services for Substance Abuse Treatment (ICD-10-PCS; principal; 2022-10-06)
DX: F10.230 Alcohol dependence with withdrawal, uncomplicated (principal); F14.20 Cocaine dependence, uncomplicated; R45.851 Suicidal ideations; F19.282 Other psychoactive substance dependence with psychoactive substance-induced sleep disorder; F12.20 Cannabis dependence, uncomplicated; F17.210 Nicotine dependence, cigarettes, uncomplicated; F51.05 Insomnia due to other mental disorder; F25.9 Schizoaffective disorder, unspecified; Z56.0 Unemployment, unspecified; Z59.00 Homelessness unspecified; Z86.39 Personal history of other endocrine, nutritional and metabolic disease
CPT/HCPCS: 36415; 80053; 85027; 86780; 87811; C9803-CS; Q0162; U0003; U0005

== ENCOUNTER 2022-10-16 17:20 | Inpatient (IN) | payer OTHER ==
[2022-10-16 17:59] VITALS: BMI 24.1
[2022-10-16] MEDS ORDERED: NALOXONE HCL 0.4 MG/ML VIAL IM PRN (20:01)
[2022-10-16] MEDS ORDERED: BISMUTH SUBSALICYLATE 524 MG/30 ML PO PRN (20:01)
[2022-10-16] MEDS ORDERED: MAGNESIUM HYDROX 2400MG/30ML ORAL SUSPENSION 30 ML CUP PO PRN (20:01)
[2022-10-16] MEDS ORDERED: P-EPHED 60MG/TRIPROLIDI 2.5MG TABLET PO PRN (20:01)
[2022-10-16] MEDS ORDERED: NALOXONE HCL (KLOXXADO) 8 MG SPRAY NS PRN (20:01)
[2022-10-16] MEDS ORDERED: IBUPROFEN 400 MG TABLET (FP) PO PRN (20:01)
[2022-10-16] MEDS ORDERED: ACETAMINOPHEN 325 MG TABLET (FP) PO PRN (20:01)
[2022-10-16] MEDS ORDERED: IBUPROFEN 600 MG TABLET (FP) PO PRN (20:01)
[2022-10-16] MEDS ORDERED: DICYCLOMINE HCL 10 MG CAPSULE PO PRN (20:01)
[2022-10-16] MEDS ORDERED: guaiFENesin 600 MG TABLET.ER (FP) PO PRN (20:01)
[2022-10-16] MEDS ORDERED: hydrOXYzine PAMOATE 25 MG CAPSULE (FP) PO PRN (20:01)
[2022-10-16] MEDS ORDERED: POLYETHYLENE GLYCOL (HEALTHYLAX) 3350 17 GM PACKET PO PRN (20:01)
[2022-10-16] MEDS ORDERED: ONDANSETRON *ODT* 4 MG TABLET SL PRN (20:01)
[2022-10-16] MEDS ORDERED: BENZONATATE 200 MG CAPSULE PO PRN (20:01)
[2022-10-16] MEDS ORDERED: MAG HYDROX/AL HYDROX/SIMETH 30 ML UNIT-DOSE CUP PO PRN (20:01)
[2022-10-16] MEDS ORDERED: MELATONIN 5 MG TABLETS PO PRN (20:01)
[2022-10-16] MEDS ORDERED: BENZOCAINE/MENTHOL (CHLORASEPTIC ) LOZENGE MM PRN (20:01)
[2022-10-16] MEDS ORDERED: LOPERAMIDE HCL 2 MG CAPSULE PO PRN (20:01)
[2022-10-16] MEDS ORDERED: diazePAM 5 MG TABLET PO PRN (20:03)
[2022-10-16] MEDS: THIAMINE HCL 100 MG TABLET (FP) PO SCH (22:30)
[2022-10-16] MEDS: diazePAM 5 MG TABLET PO SCH (22:31)
[2022-10-17] MEDS: diazePAM 5 MG TABLET PO SCH ×4 (05:28→22:17)
[2022-10-17] MEDS: PRENATAL VITAMINS W/ FOLIC ACID TABLET (FP) PO SCH (10:20)
[2022-10-17 11:35] LABS: POTASSIUM 4.5 mmol/L (3.5-5.1)
[2022-10-17 11:38] LABS: ALBUMIN 2.9 g/dl (3.4-5.0); CALCIUM 9.3 mg/dL (8.5-10.1)
[2022-10-17 11:39] LABS: BLOOD UREA NITROGEN 8.6 mg/dL (7-18)
[2022-10-17 11:42] LABS: CREATININE 0.8 mg/dL (0.55-1.3)
[2022-10-17 11:44] LABS: HEMATOCRIT 39.3 % (35.4-49); HEMOGLOBIN 13.5 GM/dL (11.7-16.9); MCH 31.5 pg (25.7-33.7); MCHC 34.3 g/dl (32.0-35.9); MEAN CELL VOLUME 91.9 fl (80-96); MEAN PLT VOLUME 7.8 fl (7.5-11.1); PLATELET COUNT 334 10^3/uL (134-434); RBC 4.27 M/mm3 (4.00-5.60); RDW 14.4 % (11.9-15.9); WHITE BLOOD COUNT 7.5 K/mm3 (4.0-10.0)
[2022-10-17 11:45] LABS: BILIRUBIN,TOTAL 0.4 mg/dL (0.2-1); TOT PROT 6.7 g/dl (6.4-8.2)
[2022-10-17] MEDS: NICOTINE POLACRILEX 2 MG GUM BUC PRN (18:08)
[2022-10-17] MEDS ORDERED: QUEtiapine FUMARATE 200 MG TABLET PO SCH (22:00)
[2022-10-17] MEDS: QUEtiapine FUMARATE 300 MG TABLET PO SCH (22:16)
[2022-10-17] MEDS: THIAMINE HCL 100 MG TABLET (FP) PO SCH (22:17)
[2022-10-18] MEDS: diazePAM 5 MG TABLET PO SCH ×2 (05:23→17:25)
[2022-10-18] MEDS: PRENATAL VITAMINS W/ FOLIC ACID TABLET (FP) PO SCH (10:24)
[2022-10-18] MEDS: NICOTINE POLACRILEX 2 MG GUM BUC PRN (17:26)
[2022-10-18] MEDS: QUEtiapine FUMARATE 300 MG TABLET PO SCH (22:30)
[2022-10-18] MEDS: THIAMINE HCL 100 MG TABLET (FP) PO SCH (22:30)
[2022-10-19] MEDS ORDERED: diazePAM 5 MG TABLET PO ONE (06:00)
[2022-10-19] MEDS: NICOTINE POLACRILEX 2 MG GUM BUC PRN (06:02)
[2022-10-19] MEDS: PRENATAL VITAMINS W/ FOLIC ACID TABLET (FP) PO SCH (10:11)
[2022-10-19 12:57] VITALS: BP 159/96; PULSE 92; RESP 18; TEMP 97.8
== END 2022-10-19 13:12 | disposition home or self-care (01) | DRG 897 ==
LOC: YASAS 17:20 → Y3N 21:37
PROVIDERS: ADMIT Allergy & Immunology; ATTEND Surgery
PROC: HZ2ZZZZ Detoxification Services for Substance Abuse Treatment (ICD-10-PCS; principal; 2022-10-16)
DX: F10.230 Alcohol dependence with withdrawal, uncomplicated (principal); F19.282 Other psychoactive substance dependence with psychoactive substance-induced sleep disorder; F12.20 Cannabis dependence, uncomplicated; F17.210 Nicotine dependence, cigarettes, uncomplicated; F20.9 Schizophrenia, unspecified; F19.24 Other psychoactive substance dependence with psychoactive substance-induced mood disorder; E05.90 Thyrotoxicosis, unspecified without thyrotoxic crisis or storm; B18.2 Chronic viral hepatitis C; Z56.0 Unemployment, unspecified; Z59.00 Homelessness unspecified
CPT/HCPCS: 36415; 80053; 85027; 86780; 87635; 93005; 93010